=== PATIENT | female | born 1990 | race Caucasian/White ===

== ENCOUNTER 2018-05-14 16:18 | Emergency (ER) | payer MEDICAID ==
[~2018-05-14] VITALS: Ht 167.6 cm; Wt 70.3 kg
[2018-05-14 16:28] VITALS: BP 121/57
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
--- NOTE | 2018-05-14 19:18 | NUR ---
Pt report given to [facility]CENA. Transfer of care at this time.
--- NOTE | 2018-05-14 19:41 | NUR ---
PT RETURN FROM RADIOLOGY
--- NOTE | 2018-05-14 19:57 | NUR ---
Dr. Pickens evaluated patient at bedside.
[2018-05-14] MEDS ORDERED: KETOROLAC 30 MG/ML VIAL IM ONE (20:25)
[2018-05-14] MEDS ORDERED: ACETAMINOPHEN EXTRA STRENGTH 500 MG TAB PO ONE (20:25)
--- NOTE | 2018-05-14 20:40 | NUR ---
X-Ray at bedside.
[2018-05-14 21:29] VITALS: BP 130/63
--- NOTE | 2018-05-14 21:29 | NUR ---
Patient discharged with v/s stable. Written and verbal after care instructions given and explained. Patient alert, oriented and verbalized understanding of instructions. Ambulatory with steady gait. All questions addressed prior to discharge. ID band removed. Patient advised to follow up with PMD. Rx of IBUPROFEN, ACETAMINOPEN given. Patient educated on indication of medication including possible reaction and side effects. Opportunity to ask questions provided and answered.
== END 2018-05-14 21:29 | disposition home or self-care (01) ==
LOC: MED 16:18
DX: S80.02XA Contusion of left knee, initial encounter (principal); S80.01XA Contusion of right knee, initial encounter; Y99.8 Other external cause status; G89.29 Other chronic pain; M54.9 Dorsalgia, unspecified; F12.10 Cannabis abuse, uncomplicated; V23.4XXA Motorcycle driver injured in collision with car, pick-up truck or van in traffic accident, initial encounter; Y93.55 Activity, bike riding; Y92.410 Unspecified street and highway as the place of occurrence of the external cause; S70.12XA Contusion of left thigh, initial encounter
CPT/HCPCS: 71046; 72040; 73562; 81002; 81025; 96372; 99285; J1885